=== PATIENT | female | born 1960 ===

== ENCOUNTER 2022-04-15 16:52 | Inpatient (IN) | payer MEDICAID ==
[2022-04-16] MEDS ORDERED: NON-FORMULARY EACH (Levetiracetam [Keppra Tab] 1,000 MG Tablet) PO SCH (10:00)
--- NOTE | 2022-04-16 10:42 | History and Physical Report ---
GP History & Physical - History of Present Illness Date of admission: 04/15/22 Date of Examination: 04/16/22 Reason for Admission: Danger to self, Failure of Outpatient Treatment, Severe anxiety/depression History of Present Illness: The patient was seen today. She says she was brought from [facility]. She has a history of MDD, Sz and HTN. The patient says she was suicidal. She says but "I was very suicidal, but I'm better." She does endorse severe depression, and states that she cries all the time out of nowhere. She says "I don't know why, but I cry a lot." The patient is asking to go home and states that she had a in the family. She also says [employer] has paid her rent up for 6 months. She also endorses cocaine and alcohol use. The patient denies hallucinations. PAST PSYCHIATRIC HISTORY: Diagnoses: MDD Suicide attempts or Self-harm behavior: Yes Prior psychiatric hospitalizations: Yes Substance Abuse history: Cocaine, alcohol Previous psychiatric medications tried: could not recall Outpatient treatment: Yes PAST MEDICAL HISTORY: None reported Family Psychiatric History: None reported or documented SOCIAL HISTORY Marital Status: Single Living Arrangements: lives with significant other Employment Status: Disabled Access to guns/weapons: Denies Education: History of Abuse:Denies Legal History: Denies REVIEW OF SYSTEMS Constitutional: Negative for weight loss ENT: Negative for stridor Respiratory: Negative for cough or hemoptysis All other systems reviewed and are negative MENTAL STATUS EXAMINATION General Appearance and Behavior: Age appropriate, wearing appropriate clothes, cooperative, polite with questioning, good eye contact Cooperation: cooperative Psychomotor Behavior: Psychomotor normal Mood: Depressed Affect and affective range: congruent with stated affect Thought Process: Goal directed Thought Content: Reality oriented Speech: Normal volume, Regular rate and rhythm Suicidal Ideation: Denies at present but states "I was" Homicidal Ideation: Denies Hallucination: Denies Delusions: Denies Impulse Control: Limited Insight and Judgment: Limited Memory: Intact Attention:attentive Orientation: Alert and oriented Diagnoses: Major Depressive Disorder Cocaine Use Disorder Alcohol Dependence Treatment Plan Patient admitted for inpatient psychiatric evaluation, medication adjustment and close monitoring The patient's behavior, mood, sleep and appetite will be closely monitored. Patient enrolled in individual and group therapeutic sessions and encouraged to attend. Patient provided with a safe and structured environment. Patient's physical health needs will be addressed by the Hospitalist. Hospitalist Consulted Labs including CBC, CMP, Lipid profile and Hemoglobin A1C levels ordered for baseline reference Social Assessment will be completed and the Core Finisher will work with patient and family to ensure a suitable and safe disposition Medication adjustment will be made as clinically indicated Zoloft 25mg po daily CIWA Lorazepam 2mg q4h prn alcohol withdrawal Usual Wellness Mormon/Preservation: - Start Trazodone 50 mg po QHS & 50 mg po QHS PRN between 10 PM & 2 AM for insomnia - Start Melatonin 5 mg po QHS to promote circadian rhythm The patient agreed on the treatment plan, understood the risk, benefit, alternative treatment, potential consequence of no treatment, and gave informed consent. Estimated days: 7 Post hospital care: primary care provider, psychiatric provider Case staffed with Dr. Raygoza Legal Status: Voluntary Reaction to Hospitalization: Accepting Medications and Allergies Allergies Allergy/AdvReac Type Severity Reaction Status Date / Time codeine Allergy Itching Verified 04/16/22 02:31 haloperidol [From Haldol] Allergy Anaphylaxis Verified 04/16/22 02:31 ibuprofen Allergy Itching Verified 04/16/22 02:31 Penicillins Allergy Itching Verified 04/16/22 02:31 Home Medications Medication Instructions Recorded Confirmed Last Taken Type Quetiapine Fumarate [SEROquel] 50 mg PO HS 04/16/22 04/16/22 Unknown History levETIRAcetam [Keppra TAB] 1,000 mg PO BID 04/16/22 04/16/22 Unknown History lisinopriL [Lisinopril] 10 mg PO DAILY 04/16/22 04/16/22 Unknown History Active Meds: Active Medications Levetiracetam (Levetiracetam 500 Mg Tab) 1,000 mg PO BID [facility] Lisinopril (Lisinopril 10 Mg Tab) 10 mg PO DAILY [facility] Quetiapine Fumarate (Quetiapine 25 Mg Tab) 50 mg PO QHS [facility] Physician Certification - Certification Statement Physician Certification Statement: This is an acknowledgement statement that KELY POPE is a 62 year old F who requires inpatient psychiatric admission for treatment which could reasonably be expected to improve the patient's condition for Estimated period of time patient will need to remain in the hospital: [ ] Plan for post-hospital care: [ ]
[2022-04-16] MEDS ORDERED: LORazepam 2 MG TAB PO PRN (11:00)
--- NOTE | 2022-04-16 11:13 | Consultation ---
Medications and Allergies Allergies Allergy/AdvReac Type Severity Reaction Status Date / Time codeine Allergy Itching Verified 04/16/22 02:31 haloperidol [From Haldol] Allergy Anaphylaxis Verified 04/16/22 02:31 ibuprofen Allergy Itching Verified 04/16/22 02:31 Penicillins Allergy Itching Verified 04/16/22 02:31 Home Medications Medication Instructions Recorded Confirmed Last Taken Type Quetiapine Fumarate [SEROquel] 50 mg PO HS 04/16/22 04/16/22 Unknown History levETIRAcetam [Keppra TAB] 1,000 mg PO BID 04/16/22 04/16/22 Unknown History lisinopriL [Lisinopril] 10 mg PO DAILY 04/16/22 04/16/22 Unknown History Active Meds: Active Medications Levetiracetam (Levetiracetam 500 Mg Tab) 1,000 mg PO BID [facility] Lisinopril (Lisinopril 10 Mg Tab) 10 mg PO DAILY [facility] Lorazepam (Lorazepam 2 Mg Tab) 2 mg PO Q4H PRN PRN Reason: Alcohol Withdrawal Quetiapine Fumarate (Quetiapine 25 Mg Tab) 50 mg PO QHS [facility] Sertraline HCl (Sertraline 25 Mg Tab) 25 mg PO QDAY [facility]
[2022-04-16] MEDS: SERTRALINE 25 MG TAB PO SCH (11:17)
[2022-04-16] MEDS: LISINOPRIL 10 MG TAB PO SCH (11:17)
[2022-04-16] MEDS: levETIRAcetam 500 MG TAB PO SCH ×2 (11:17→21:55)
[2022-04-16 11:54] LABS: Basophils # (Auto) 0.1 K/mm3 (0.0-0.1); Eosinophils # (Auto) 0.1 K/mm3 (0.0-0.4); Eosinophils % (Auto) 2.2 % (0.0-4.3); Hematocrit 38.4 % (30.3-42.9); Hemoglobin 12.7 gm/dl (10.1-14.3); Lymphocytes # (Auto) 1.7 K/mm3 (1.2-5.4); Lymphocytes % (Auto) 25.9 % (13.4-35.0); Mean Corpuscular HGB Conc 33 % (30-34); Mean Corpuscular Volume 93 fl (79-97); Monocytes # (Auto) 0.6 K/mm3 (0.0-0.8); Monocytes % (Auto) 8.5 % (0.0-7.3); Platelet Count 357 K/mm3 (140-440); Red Blood Count 4.14 M/mm3 (3.65-5.03); Red Cell Distribution Width 12.8 % (13.2-15.2)
[2022-04-16 12:16] LABS: Alanine Aminotransferase 8 units/L (7-56); Albumin 4.2 g/dL (3.9-5); Blood Urea Nitrogen 12 mg/dL (7-17); Calcium 9.8 mg/dL (8.4-10.2); Chol/HDL Ratio 2.05 %; HDL Cholesterol 104 mg/dL (40-59); Hemolysis Index 10; LDL Cholesterol,Direct 93 mg/dL (50-130)
[2022-04-16 12:47] LABS: BUN/Creatinine Ratio 20
[2022-04-16] MEDS: ACETAMINOPHEN 325 MG TAB PO PRN (16:26)
[2022-04-16] MEDS: QUEtiapine 25 MG TAB PO SCH (21:56)
[2022-04-16] MEDS ORDERED: NON-FORMULARY EACH (Quetiapine Fumarate [Seroquel] 50 MG Tablet) PO SCH (22:00)
[2022-04-17] MEDS: LISINOPRIL 10 MG TAB PO SCH (09:11)
[2022-04-17] MEDS: SERTRALINE 25 MG TAB PO SCH (09:12)
[2022-04-17] MEDS: levETIRAcetam 500 MG TAB PO SCH ×2 (09:12→21:11)
[2022-04-17] MEDS: ACETAMINOPHEN 325 MG TAB PO PRN (09:14)
--- NOTE | 2022-04-17 11:47 | Progress Note ---
Subjective Date of service: 04/17/22 Principal diagnosis: MDD, Cocaine use disorder, Alcohol Dependence Subjective Comment: The patient was seen today. She says she slept good and is eating well. She denies SI/HI or hallucinations. REVIEW OF SYSTEMS Constitutional: Negative for weight loss ENT: Negative for stridor Respiratory: Negative for cough or hemoptysis All other systems reviewed and are negative MENTAL STATUS EXAMINATION General Appearance and Behavior: Age appropriate, wearing appropriate clothes, cooperative, polite with questioning, good eye contact Cooperation: cooperative Psychomotor Behavior: Psychomotor normal Mood: Depressed Affect and affective range: congruent with stated affect Thought Process: Goal directed Thought Content: Reality oriented Speech: Normal volume, Regular rate and rhythm Suicidal Ideation: Denies at present but states "I was" Homicidal Ideation: Denies Hallucination: Denies Delusions: Denies Impulse Control: Limited Insight and Judgment: Limited Memory: Intact Attention:attentive Orientation: Alert and oriented Diagnoses: Major Depressive Disorder Cocaine Use Disorder Alcohol Dependence Treatment Plan Patient admitted for inpatient psychiatric evaluation, medication adjustment and close monitoring The patient's behavior, mood, sleep and appetite will be closely monitored. Patient enrolled in individual and group therapeutic sessions and encouraged to attend. Patient provided with a safe and structured environment. Patient's physical health needs will be addressed by the Hospitalist. Hospitalist Consulted Labs including CBC, CMP, Lipid profile and Hemoglobin A1C levels ordered for baseline reference Social Assessment will be completed and the Marketing Services Coordinator will work with patient and family to ensure a suitable and safe disposition Medication adjustment will be made as clinically indicated Continue meds Usual Wellness Tenriism/Preservation: - Start Trazodone 50 mg po QHS & 50 mg po QHS PRN between 10 PM & 2 AM for insomnia - Start Melatonin 5 mg po QHS to promote circadian rhythm The patient agreed on the treatment plan, understood the risk, benefit, alternative treatment, potential consequence of no treatment, and gave informed consent. Estimated days: 7 Post hospital care: primary care provider, psychiatric provider Case staffed with Dr. Raygoza Medications and Allergies Allergies Allergy/AdvReac Type Severity Reaction Status Date / Time codeine Allergy Itching Verified 04/16/22 02:31 haloperidol [From Haldol] Allergy Anaphylaxis Verified 04/16/22 02:31 ibuprofen Allergy Itching Verified 04/16/22 02:31 Penicillins Allergy Itching Verified 04/16/22 02:31 Home Medications Medication Instructions Recorded Confirmed Last Taken Type Quetiapine Fumarate [SEROquel] 50 mg PO HS 04/16/22 04/16/22 Unknown History levETIRAcetam [Keppra TAB] 1,000 mg PO BID 04/16/22 04/16/22 Unknown History lisinopriL [Lisinopril] 10 mg PO DAILY 04/16/22 04/16/22 Unknown History Active Meds: Active Medications Acetaminophen (Acetaminophen 325 Mg Tab) 650 mg PO Q6H PRN PRN Reason: Pain, Mild (1-3) Last Admin: 04/17/22 09:14 Dose: 650 mg Levetiracetam (Levetiracetam 500 Mg Tab) 1,000 mg PO BID [facility] Last Admin: 04/17/22 09:12 Dose: 1,000 mg Lisinopril (Lisinopril 10 Mg Tab) 10 mg PO DAILY [facility] Last Admin: 04/17/22 09:11 Dose: 10 mg Lorazepam (Lorazepam 2 Mg Tab) 2 mg PO Q4H PRN PRN Reason: Alcohol Withdrawal Quetiapine Fumarate (Quetiapine 25 Mg Tab) 50 mg PO QHS [facility] Last Admin: 04/16/22 21:56 Dose: 50 mg Sertraline HCl (Sertraline 25 Mg Tab) 25 mg PO QDAY [facility] Last Admin: 04/17/22 09:12 Dose: 25 mg Results - Results Labs/Vitals: Laboratory Last Values WBC 6.5 K/mm3 (4.5-11.0) 04/16/22 11:33 RBC 4.14 M/mm3 (3.65-5.03) 04/16/22 11:33 Hgb 12.7 gm/dl (10.1-14.3) 04/16/22 11:33 Hct 38.4 % (30.3-42.9) 04/16/22 11:33 MCV 93 fl (79-97) 04/16/22 11:33 MCH 31 pg (28-32) 04/16/22 11:33 MCHC 33 % (30-34) 04/16/22 11:33 RDW 12.8 % (13.2-15.2) L 04/16/22 11:33 Plt Count 357 K/mm3 (140-440) 04/16/22 11:33 Lymph % (Auto) 25.9 % (13.4-35.0) 04/16/22 11:33 [place] % (Auto) 8.5 % (0.0-7.3) H 04/16/22 11:33 Eos % (Auto) 2.2 % (0.0-4.3) 04/16/22 11:33 Baso % (Auto) 1.0 % (0.0-1.8) 04/16/22 11:33 Lymph # (Auto) 1.7 K/mm3 (1.2-5.4) 04/16/22 11:33 [place] # (Auto) 0.6 K/mm3 (0.0-0.8) 04/16/22 11:33 Eos # (Auto) 0.1 K/mm3 (0.0-0.4) 04/16/22 11:33 Baso # (Auto) 0.1 K/mm3 (0.0-0.1) 04/16/22 11:33 Seg Neutrophils % 62.4 % (40.0-70.0) 04/16/22 11:33 Seg Neutrophils # 4.1 K/mm3 (1.8-7.7) 04/16/22 11:33 Sodium 135 mmol/L (137-145) L 04/16/22 11:33 Potassium 4.8 mmol/L (3.6-5.0) 04/16/22 11:33 Chloride 97.5 mmol/L (98-107) L 04/16/22 11:33 Carbon Dioxide 26 mmol/L (22-30) 04/16/22 11:33 Anion Gap 16 mmol/L 04/16/22 11:33 BUN 12 mg/dL (7-17) 04/16/22 11:33 Creatinine 0.6 mg/dL (0.6-1.2) 04/16/22 11:33 Estimated GFR > 60 ml/min 04/16/22 11:33 BUN/Creatinine Ratio 20 % 04/16/22 11:33 Glucose 90 mg/dL (65-100) 04/16/22 11:33 Hemoglobin A1c 6.5 % (4-6) H 04/16/22 11:33 Calcium 9.8 mg/dL (8.4-10.2) 04/16/22 11:33 Total Bilirubin 0.20 mg/dL (0.1-1.2) 04/16/22 11:33 AST 12 units/L (5-40) 04/16/22 11:33 ALT 8 units/L (7-56) 04/16/22 11:33 Alkaline Phosphatase 103 units/L (35-129) 04/16/22 11:33 Total Protein 7.2 g/dL (6.3-8.2) 04/16/22 11:33 Albumin 4.2 g/dL (3.9-5) 04/16/22 11:33 Albumin/Globulin Ratio 1.4 % 04/16/22 11:33 Triglycerides 139 mg/dL (2-149) 04/16/22 11:33 Cholesterol 214 mg/dL (50-199) H 04/16/22 11:33 LDL Cholesterol Direct 93 mg/dL (50-130) 04/16/22 11:33 HDL Cholesterol 104 mg/dL (40-59) H 04/16/22 11:33 Cholesterol/HDL Ratio 2.05 % 04/16/22 11:33 TSH 0.589 mlU/mL (0.270-4.200) 04/16/22 11:33 Last Vital Signs Temp 98.0 F 04/17/22 06:39 Pulse 79 04/17/22 09:11 Resp 18 04/17/22 06:39 BP 130/72 04/17/22 09:11 Pulse Ox 95 04/16/22 15:27
[2022-04-17] MEDS: QUEtiapine 25 MG TAB PO SCH (21:11)
[2022-04-17] MEDS: hydrOXYzine PAMOATE 25 MG CAP PO PRN (21:40)
[2022-04-18] MEDS: levETIRAcetam 500 MG TAB PO SCH ×2 (10:06→21:19)
[2022-04-18] MEDS: SERTRALINE 50 MG TAB PO SCH (10:06)
[2022-04-18] MEDS: hydrOXYzine PAMOATE 25 MG CAP PO PRN ×2 (10:07→20:57)
[2022-04-18] MEDS: LISINOPRIL 10 MG TAB PO SCH (10:07)
[2022-04-18] MEDS: ACETAMINOPHEN 325 MG TAB PO PRN ×2 (10:09→18:42)
[2022-04-18] MEDS: QUEtiapine 25 MG TAB PO SCH (21:19)
[2022-04-19] MEDS: hydrOXYzine PAMOATE 25 MG CAP PO PRN (05:28)
[2022-04-19 07:34] VITALS: BP 103/74
[2022-04-19] MEDS: LISINOPRIL 10 MG TAB PO SCH (09:19)
[2022-04-19] MEDS: levETIRAcetam 500 MG TAB PO SCH (09:19)
[2022-04-19] MEDS: SERTRALINE 50 MG TAB PO SCH (09:19)
--- NOTE | 2022-04-19 11:06 | Progress Note ---
Subjective Date of service: 04/18/22 Principal diagnosis: MDD, Cocaine use disorder, Alcohol Dependence Subjective Comment: 04/19: Patient was seen today. Patient is alert and oriented x4. Patient reports she's "doing alright," and is "ready to get out of here." Patient reports good mood, okay sleep and appetite. Patient denies SI HI AVH at this time. Objective - Criteria for Continued Treatment Criteria for Continued Treatment: Preventing Decomposition, Improving Level of Functioning, Understanding Diagnosis and need for Medication, Improving Treatment / Medication Compliance - Mental Status Mental Status: Oriented x 3 - Objective Observation Participation Level: Full Assessment and Plan Assessment Major depressive disorder Cocaine use disorder Alcohol Dependence Plan Patient admitted for inpatient psychiatric evaluation, medication adjustment and close monitoring The patient's behavior, mood, sleep and appetite will be closely monitored. Patient enrolled in individual and group therapeutic sessions and encouraged to attend. Patient provided with a safe and structured environment. Patient's physical health needs will be addressed by the Hospitalist. Hospitalist Consulted Labs including CBC, CMP, Lipid profile and Hemoglobin A1C levels ordered for baseline reference Social Assessment will be completed and the Gate Mortiser Operator will work with patient and family to ensure a suitable and safe disposition Medication adjustment will be made as clinically indicated - Increase Zoloft 50 mg po daily - Continue Seroquel 50 mg qhs - CIWA - Lorazepam 2mg q4h prn alcohol withdrawal The patient agreed on the treatment plan, understood the risk, benefit, alternative treatment, potential consequence of no treatment, and gave informed consent. Estimated days: 1 Post hospital care: primary care provider, psychiatric provider Case staffed with Dr. Raygoza - Patient Problems (1) Major depressive disorder Current Visit: Yes Status: Acute Qualifiers: Major depression recurrence: recurrent Psychotic features: without psychotic features (2) Cocaine abuse Current Visit: No Status: Acute (3) Alcohol abuse Current Visit: No Status: Acute Medications and Allergies Allergies Allergy/AdvReac Type Severity Reaction Status Date / Time codeine Allergy Itching Verified 04/16/22 02:31 haloperidol [From Haldol] Allergy Anaphylaxis Verified 04/16/22 02:31 ibuprofen Allergy Itching Verified 04/16/22 02:31 Penicillins Allergy Itching Verified 04/16/22 02:31 Home Medications Medication Instructions Recorded Confirmed Last Taken Type Quetiapine Fumarate [SEROquel] 50 mg PO HS 04/16/22 04/16/22 Unknown History levETIRAcetam [Keppra TAB] 1,000 mg PO BID 04/16/22 04/16/22 Unknown History lisinopriL [Lisinopril] 10 mg PO DAILY 04/16/22 04/16/22 Unknown History Active Meds: Active Medications Acetaminophen (Acetaminophen 325 Mg Tab) 650 mg PO Q6H PRN PRN Reason: Pain, Mild (1-3) Last Admin: 04/18/22 18:42 Dose: 650 mg Hydroxyzine Pamoate (Hydroxyzine Pamoate 25 Mg Cap) 25 mg PO Q6H PRN PRN Reason: Anxiety Last Admin: 04/19/22 05:28 Dose: 25 mg Levetiracetam (Levetiracetam 500 Mg Tab) 1,000 mg PO BID [facility] Last Admin: 04/19/22 09:19 Dose: 1,000 mg Lisinopril (Lisinopril 10 Mg Tab) 10 mg PO DAILY [facility] Last Admin: 04/19/22 09:19 Dose: 10 mg Lorazepam (Lorazepam 2 Mg Tab) 2 mg PO Q4H PRN PRN Reason: Alcohol Withdrawal Quetiapine Fumarate (Quetiapine 25 Mg Tab) 50 mg PO QHS [facility] Last Admin: 04/18/22 21:19 Dose: 50 mg Sertraline HCl (Sertraline 50 Mg Tab) 50 mg PO QDAY [facility] Last Admin: 04/19/22 09:19 Dose: 50 mg Results - Results Labs/Vitals: Laboratory Last Values WBC 6.5 K/mm3 (4.5-11.0) 04/16/22 11:33 RBC 4.14 M/mm3 (3.65-5.03) 04/16/22 11:33 Hgb 12.7 gm/dl (10.1-14.3) 04/16/22 11:33 Hct 38.4 % (30.3-42.9) 04/16/22 11:33 MCV 93 fl (79-97) 04/16/22 11:33 MCH 31 pg (28-32) 04/16/22 11:33 MCHC 33 % (30-34) 04/16/22 11:33 RDW 12.8 % (13.2-15.2) L 04/16/22 11:33 Plt Count 357 K/mm3 (140-440) 04/16/22 11:33 Lymph % (Auto) 25.9 % (13.4-35.0) 04/16/22 11:33 [place] % (Auto) 8.5 % (0.0-7.3) H 04/16/22 11:33 Eos % (Auto) 2.2 % (0.0-4.3) 04/16/22 11:33 Baso % (Auto) 1.0 % (0.0-1.8) 04/16/22 11:33 Lymph # (Auto) 1.7 K/mm3 (1.2-5.4) 04/16/22 11:33 [place] # (Auto) 0.6 K/mm3 (0.0-0.8) 04/16/22 11:33 Eos # (Auto) 0.1 K/mm3 (0.0-0.4) 04/16/22 11:33 Baso # (Auto) 0.1 K/mm3 (0.0-0.1) 04/16/22 11:33 Seg Neutrophils % 62.4 % (40.0-70.0) 04/16/22 11:33 Seg Neutrophils # 4.1 K/mm3 (1.8-7.7) 04/16/22 11:33 Sodium 135 mmol/L (137-145) L 04/16/22 11:33 Potassium 4.8 mmol/L (3.6-5.0) 04/16/22 11:33 Chloride 97.5 mmol/L (98-107) L 04/16/22 11:33 Carbon Dioxide 26 mmol/L (22-30) 04/16/22 11:33 Anion Gap 16 mmol/L 04/16/22 11:33 BUN 12 mg/dL (7-17) 04/16/22 11:33 Creatinine 0.6 mg/dL (0.6-1.2) 04/16/22 11:33 Estimated GFR > 60 ml/min 04/16/22 11:33 BUN/Creatinine Ratio 20 % 04/16/22 11:33 Glucose 90 mg/dL (65-100) 04/16/22 11:33 POC Glucose 97 mg/dL (70-105) 04/17/22 06:19 Hemoglobin A1c 6.5 % (4-6) H 04/16/22 11:33 Calcium 9.8 mg/dL (8.4-10.2) 04/16/22 11:33 Total Bilirubin 0.20 mg/dL (0.1-1.2) 04/16/22 11:33 AST 12 units/L (5-40) 04/16/22 11:33 ALT 8 units/L (7-56) 04/16/22 11:33 Alkaline Phosphatase 103 units/L (35-129) 04/16/22 11:33 Total Protein 7.2 g/dL (6.3-8.2) 04/16/22 11:33 Albumin 4.2 g/dL (3.9-5) 04/16/22 11:33 Albumin/Globulin Ratio 1.4 % 04/16/22 11:33 Triglycerides 139 mg/dL (2-149) 04/16/22 11:33 Cholesterol 214 mg/dL (50-199) H 04/16/22 11:33 LDL Cholesterol Direct 93 mg/dL (50-130) 04/16/22 11:33 HDL Cholesterol 104 mg/dL (40-59) H 04/16/22 11:33 Cholesterol/HDL Ratio 2.05 % 04/16/22 11:33 TSH 0.589 mlU/mL (0.270-4.200) 04/16/22 11:33 Last Vital Signs Temp 97.6 F 04/19/22 06:04 Pulse 83 04/19/22 09:19 Resp 18 04/19/22 06:04 BP 103/74 04/19/22 09:19 Pulse Ox 97 04/19/22 06:04
--- NOTE | 2022-04-19 11:19 | Discharge Summary ---
Providers - Providers Date of Admission: 04/16/22 05:11 Date of discharge: 04/19/22 Attending physician: MOO ALMEIDA MD 04/16/22 02:32 Consult to Physician [CONS] Routine Comment: Consulting Provider: JANE GALLARDO Physician Instructions: Please manage exisiting conditions per H&P Reason For Exam: New admission 04/16/22 16:19 Physical Therapy Evaluation and Treat [CONS] Stat Comment: Reason For Exam: unsteady gait/ rt knee pain Primary care physician: TOBACCO PRIZER Hospitalization Reason for admission: Danger to self, Failure of Outpatient Treatment, Severe anxiety/depression Admitting Diagnosis: F33.9 - MAJOR DEPRESSIVE DISORDER, RECURRENT, UNSPECIFIED Condition: Stable Hospital course: The patient was provided inpatient psychiatric treatment with safe and supportive care, medication adjustment, adverse effect monitoring, medical evaluations, medical treatments, assessment and psycho-education. The patient's mood, cognition, behavior, moral support are improved and stabilized. At the time of discharge, the patient had no endangering behavior and no debilitating adverse effects. The patient agreed on potential consequences of no treatment and gave informed consent. 04/19: The patient was seen today. Patient is alert and oriented x4. She reports "I'm feeling great," and denies SI/HI/AVH. Patient reports some difficulty falling asleep, but no issues staying asleep, and reports feeling well rested. Patient reports good appetite. Patient denies anxiety, but would like to increase her PRN anxiety medication (hydroxyzine). Advised patient to f/u with outpatient psych services for further medication adjustments. Patient voiced un derstanding. 04/18: Patient was seen today. Patient is alert and oriented x4. Patient reports she's "doing alright," and is "ready to get out of here." Patient reports good mood, okay sleep and appetite. Patient denies SI HI AVH at this time. 04/17: The patient was seen today. She says she slept good and is eating well. She denies SI/HI or hallucinations. 04/16: The patient was seen today. She says she was brought from [facility]. She has a history of MDD, Sz and HTN. The patient says she was suicidal. She says but "I was very suicidal, but I'm better." She does endorse severe depression, and states that she cries all the time out of nowhere. She says "I don't know why, but I cry a lot." The patient is asking to go home and states that she had a in the family. She also says [employer] has paid her rent up for 6 months. She also endorses cocaine and alcohol use. The patient denies hallucinations. Disposition: 01 HOME / SELF CARE / HOMELESS Time spent for discharge: 35 Allergies/Adverse Reactions: Allergies codeine Allergy (Verified 04/16/22 02:31) Itching haloperidol [From Haldol] Allergy (Verified 04/16/22 02:31) Anaphylaxis ibuprofen Allergy (Verified 04/16/22 02:31) Itching Penicillins Allergy (Verified 04/16/22 02:31) Itching Vital Signs: Last Vital Signs Temp 97.6 F 04/19/22 06:04 Pulse 83 04/19/22 09:19 Resp 18 04/19/22 06:04 BP 103/74 04/19/22 09:19 Pulse Ox 97 04/19/22 06:04 Last Lab: Laboratory Last Values WBC 6.5 K/mm3 (4.5-11.0) 04/16/22 11:33 RBC 4.14 M/mm3 (3.65-5.03) 04/16/22 11:33 Hgb 12.7 gm/dl (10.1-14.3) 04/16/22 11:33 Hct 38.4 % (30.3-42.9) 04/16/22 11:33 MCV 93 fl (79-97) 04/16/22 11:33 MCH 31 pg (28-32) 04/16/22 11:33 MCHC 33 % (30-34) 04/16/22 11:33 RDW 12.8 % (13.2-15.2) L 04/16/22 11:33 Plt Count 357 K/mm3 (140-440) 04/16/22 11:33 Lymph % (Auto) 25.9 % (13.4-35.0) 04/16/22 11:33 [place] % (Auto) 8.5 % (0.0-7.3) H 04/16/22 11:33 Eos % (Auto) 2.2 % (0.0-4.3) 04/16/22 11:33 Baso % (Auto) 1.0 % (0.0-1.8) 04/16/22 11:33 Lymph # (Auto) 1.7 K/mm3 (1.2-5.4) 04/16/22 11:33 [place] # (Auto) 0.6 K/mm3 (0.0-0.8) 04/16/22 11:33 Eos # (Auto) 0.1 K/mm3 (0.0-0.4) 04/16/22 11:33 Baso # (Auto) 0.1 K/mm3 (0.0-0.1) 04/16/22 11:33 Seg Neutrophils % 62.4 % (40.0-70.0) 04/16/22 11:33 Seg Neutrophils # 4.1 K/mm3 (1.8-7.7) 04/16/22 11:33 Sodium 135 mmol/L (137-145) L 04/16/22 11:33 Potassium 4.8 mmol/L (3.6-5.0) 04/16/22 11:33 Chloride 97.5 mmol/L (98-107) L 04/16/22 11:33 Carbon Dioxide 26 mmol/L (22-30) 04/16/22 11:33 Anion Gap 16 mmol/L 04/16/22 11:33 BUN 12 mg/dL (7-17) 04/16/22 11:33 Creatinine 0.6 mg/dL (0.6-1.2) 04/16/22 11:33 Estimated GFR > 60 ml/min 04/16/22 11:33 BUN/Creatinine Ratio 20 % 04/16/22 11:33 Glucose 90 mg/dL (65-100) 04/16/22 11:33 POC Glucose 97 mg/dL (70-105) 04/17/22 06:19 Hemoglobin A1c 6.5 % (4-6) H 04/16/22 11:33 Calcium 9.8 mg/dL (8.4-10.2) 04/16/22 11:33 Total Bilirubin 0.20 mg/dL (0.1-1.2) 04/16/22 11:33 AST 12 units/L (5-40) 04/16/22 11:33 ALT 8 units/L (7-56) 04/16/22 11:33 Alkaline Phosphatase 103 units/L (35-129) 04/16/22 11:33 Total Protein 7.2 g/dL (6.3-8.2) 04/16/22 11:33 Albumin 4.2 g/dL (3.9-5) 04/16/22 11:33 Albumin/Globulin Ratio 1.4 % 04/16/22 11:33 Triglycerides 139 mg/dL (2-149) 04/16/22 11:33 Cholesterol 214 mg/dL (50-199) H 04/16/22 11:33 LDL Cholesterol Direct 93 mg/dL (50-130) 04/16/22 11:33 HDL Cholesterol 104 mg/dL (40-59) H 04/16/22 11:33 Cholesterol/HDL Ratio 2.05 % 04/16/22 11:33 TSH 0.589 mlU/mL (0.270-4.200) 04/16/22 11:33 - Discharge Diagnoses (1) Major depressive disorder Status: Acute Qualifiers: Major depression recurrence: recurrent Psychotic features: without psych otic features (2) Cocaine abuse Status: Chronic (3) Alcohol abuse Status: Chronic Core Measure Documentation - Palliative Care Palliative Care/ Comfort Measures: Not Applicable - Core Measures Any of the following diagnoses?: none Exam - Constitutional Vitals: Temp Pulse Resp BP Pulse Ox 97.6 F 83 18 103/74 97 04/19/22 06:04 04/19/22 09:19 04/19/22 06:04 04/19/22 09:19 04/19/22 06:04 General appearance: Present: no acute distress - EENT Eyes: Present: PERRL ENT: hearing intact - Respiratory Respiratory effort: normal Plan Activity: no restrictions, advance as tolerated Weight Bearing Status: Weight Bear as Tolerated Diet: regular Care Plan Goals: Maintain good and stable mental health Plan of Treatment: The patient should be compliant with medications, not to use drugs, and not to drink alcohol. The patient understands that if suicidal ideas, homicidal ideas or any endangering feeling arise, the patient should seek assistance including, but not limited to crisis hotline, and emergency room. Assessment: Major depressive disorder Follow up with: PRIMARY CARE, [Primary Care Provider] - 7 Days Prescriptions: Quetiapine Fumarate [SEROquel] 50 mg PO HS 30 Days #30 tab hydrOXYzine PAMOATE [Vistaril] 25 mg PO Q6H PRN 30 Days #120 capsule PRN Reason: Anxiety Sertraline [Zoloft] 50 mg PO QDAY 30 Days #30 tablet
== END 2022-04-19 13:17 | disposition home or self-care (01) | DRG 885 ==
LOC: UNDOADMIN 16:52 → 3A 16:52 → 5A 04-16 05:11
PROVIDERS: ADMIT Psychiatry & Neurology Psychiatry; ATTEND Psychiatry & Neurology Psychiatry
DX: F33.9 Major depressive disorder, recurrent, unspecified (principal); I10 Essential (primary) hypertension; F20.9 Schizophrenia, unspecified; F10.20 Alcohol dependence, uncomplicated; Y90.9 Presence of alcohol in blood, level not specified; F14.10 Cocaine abuse, uncomplicated; Z88.0 Allergy status to penicillin; Z79.899 Other long term (current) drug therapy; Z88.8 Allergy status to other drugs, medicaments and biological substances; Z88.6 Allergy status to analgesic agent
CPT/HCPCS: 36415; 80053; 80061; 82962; 83036; 84443; 85025; G0378